=== PATIENT | female | born 1985 | race Caucasian/White ===

== ENCOUNTER → 2017-01-03 | Outpatient (CLI) | payer BC, OTHER ==
--- NOTE | 2017-01-03 16:04 | CT ---
CT CHEST FOR PULMONARY EMBOLISM. EXAMINATION TYPE: CT angio chest DATE OF EXAM: 01/03/2017 INDICATION: Chest pain and pain in the left lower leg CT DLP: 132.8 mGycm, Automated exposure control for dose reduction was used. CONTRAST: Patient injected with 100 mL of Omnipaque 350. COMPARISON: NONE TECHNIQUE: CT of the chest is performed on a spiral scan at 2 mm thick sections. Study is performed with intravenous contrast timed for evaluation for pulmonary embolism. This will limit additional po rtions of the evaluation. 3-D MIP images reconstructed by the technologist are reviewed on the compu ter in the coronal and sagittal planes. FINDINGS: No persistent filling defects are evident to suggest an acute pulmonary embolism. No mediastinal or hilar adenopathy enlarged by CT criteria is evident. The ascending aorta diameter at the level of the main pulmonary artery is 2.8 cm. The main pulmonary artery diameter at the bifur cation is 2.1 cm. Lung windows are clear. Limited CT section through the upper abdomen are unremarkable. IMPRESSIONS: 1. No acute pulmonary embolism.
== END | disposition home or self-care (01) ==
LOC: RADCTMAIN 15:19
PROVIDERS: ATTEND Family Medicine
DX: R07.9 Chest pain, unspecified (principal)
CPT/HCPCS: 71275; Q9967

== ENCOUNTER → 2017-07-14 | Outpatient (CLI) | payer BC ==
--- NOTE | 2017-07-14 07:46 | USB ---
Reason for exam: clinical finding. Indicated problem(s): other indicated problem in the right breast. Physical Findings: Nurse Summary: x 6 months pain and lump 9 o'clock right breast per patient (nurse kp). US Breast RT Right breast ultrasound includes all four quadrants, the retroareolar region and axilla. Finding demonstrates a 0.9 x 1.0 x 0.4cm lesion at 10 o'clock. These results were verbally communicated with the patient and result sheet given to the patient on 07/14/17. ASSESSMENT: Probably benign, BI-RAD 3 RECOMMENDATION: Ultrasound of the right breast in 6 months. Manage patient on a clinical basis.
== END ==
LOC: RADUSWWP 06:55
PROVIDERS: ATTEND Obstetrics & Gynecology
DX: N63.10 Unspecified lump in the right breast, unspecified quadrant (principal); N64.4 Mastodynia

== ENCOUNTER 2017-10-17 13:11 | Emergency (ER) | payer BC ==
[2017-10-17] MEDS ORDERED: RX INFO: IV CONTRAST WAS GIVEN 1 EACH MISC MISCELLANE PRN (16:37)
--- NOTE | 2017-10-17 16:47 | ED ---
General Adult HPI - General Chief complaint: Recheck/Abnormal Lab/Rx Stated complaint: High BP/heart racing/headache Time Seen by Provider: 10/17/17 16:08 Source: patient Mode of arrival: ambulatory Limitations: no limitations - History of Present Illness Initial comments: 31-year-old female presenting with headache. Patient states she has a history of MTHFR has never required anticoagulation. She denies history of any the VTEs. She states that she's been having issues with recurrent otitis media infections. She is currently on day 7 out of 10 of amoxicillin for sinusitis and right otitis media. She states last night she began to have a progressively worsening by slight headache accompanied with some blurred vision. She's been taking Motrin and Tylenol without any relief. She denies any fevers or chills. She denies any focal weakness or problem with gait. - Related Data Home Medications Medication Instructions Recorded Confirmed Acetaminophen [Tylenol] 325 mg PO Q4H PRN 10/17/17 10/17/17 Amoxicillin 500 mg PO BID 10/17/17 10/17/17 FLUoxetine HCL 10 mg PO DAILY 10/17/17 10/17/17 Norgestimate-Ethinyl Estradiol 1 tab PO DAILY 10/17/17 10/17/17 [Sprintec 28 Day Tablet] Previous Rx's Medication Instructions Recorded Fluticasone Nasal [place] [Flonase 2 spr EA NOSTRIL DAILY #1 bottle 10/17/17 Nasal [place]] Allergies Allergy/AdvReac Type Severity Reaction Status Date / Time No Known Allergies Allergy Verified 10/17/17 16:29 Review of Systems ROS Statement: Those systems with pertinent positive or pertinent negative responses have been documented in the HPI. Review of Systems Constitutional: Denies fever, chills Eyes: Positive change in vision, Denies pain Ears, nose, mouth, throat: Positive headaches, Denies sore throat. Positive ear pain. Cardiovascular: Denies chest pain. Denies palpitations Respiratory: Denies shortness of breath, Denies cough Gastrointestinal: Denies abdominal pain. Denies nausea, vomiting, diarrhea. Genitourinary: Denies hematuria, Denies infections Musculoskeletal: Denies pain, Denies swelling Integumentary: Denies rash Neurological: Positive FARMER. Denies focal weakness, focal numbness Psychiatric: Denies anxiety, Denies depression Hematologic/Lymphatic: Denies easy bleeding or bruising ROS Other: All systems not noted in ROS Statement are negative. Past Medical History Additional Past Medical History / Comment(s): MTHFR gene mutation (no anticoagulation recommended for her variant), with normal homocystine levels. History of Any Multi-Drug Resistant Organisms: None Reported Past Surgical History: Section Past Anesthesia/Blood Transfusion Reactions: No Reported Reaction Past Psychological History: No Psychological Hx Reported Smoking Status: Never smoker Past Alcohol Use History: None Reported Past Drug Use History: None Reported - Past Family History Father Family Medical History: Diabetes Mellitus General Exam - General Exam Comments Initial Comments: General: Awake, alert, No acute Distress HENT: Normocephalic. Atraumatic. TMs within normal limits. No mastoid tenderness. Eyes: PERRL. EOMI. vertical nystagmus and fatigable horizontal nystagmus. No scleral icterus. No injected conjunctiva Neck: Full ROM. No midline C-spine tenderness. Chest/Lungs: Clear to auscultation bilaterally. No wheezing, rhonchi, or rales Cardiac: Regular rate, rhythm. No murmurs or rubs Abdomen/GI: [Soft, nontender, nondistended. No rebound, guarding, or rigidity. Musculoskeletal: Full ROM Skin: Warm, dry, intact Neurologic: A/Ox3, no weakness, no sensory deficit, no abdnormal gait, no coordination deficit Limitations: no limitations Course Vital Signs 10/17/17 10/17/17 10/17/17 13:22 16:40 18:40 Temperature 97.8 F Pulse Rate 76 69 65 Respiratory 18 18 16 Rate Blood Pressure 139/88 120/78 121/69 O2 Sat by Pulse 99 99 97 Oximetry Medical Decision Making - Medical Decision Making 31-year-old female presenting with headache. This exam the patient is awake, alert, no acute distress. VSS. On physical exam the patient has vertical nystagmus as well as fatigable horizontal nystagmus. Due to her history of MTHFR and use of control will rule out central venous thrombosis. She is afebrile with no leukocytosis. Unlikely meningitis. 184 Patient's imaging and blood work was negative. Her headache improved with Tylenol and she declined Toradol and Reglan. Her nystagmus resolved. At this time unlikely patients symptoms are due to SAH. She has no neurologic deficit and her reported blurred vision has resolved. She was instructed to follow up with her primary care physician regarding her recurrent symptoms before starting Augmentin and Prednisone that was prescribed a separate EC. She was told to finish her course of Amoxicillin which she is on day 01/31. No further emergent workup is indicated. Patient is stable for discharge. - Lab Data Result diagrams: 10/17/17 17:10 10/17/17 17:10 Lab Results 10/17/17 10/17/17 10/17/17 Range/Units 17:10 17:10 17:10 WBC 6.5 (3.8-10.6) k/uL RBC 4.72 (3.80-5.40) m/uL Hgb 13.4 (11.4-16.0) gm/dL Hct 41.2 (34.0-46.0) % MCV 87.2 (80.0-100.0) fL MCH 28.4 (25.0-35.0) pg MCHC 32.6 (31.0-37.0) g/dL RDW 12.8 (11.5-15.5) % Plt Count 258 (150-450) k/uL Neutrophils % 65 % Lymphocytes % 28 % Monocytes % 4 % Eosinophils % 1 % Basophils % 1 % Neutrophils # 4.2 (1.3-7.7) k/uL Lymphocytes # 1.8 (1.0-4.8) k/uL Monocytes # 0.3 (0-1.0) k/uL Eosinophils # 0.1 (0-0.7) k/uL Basophils # 0.0 (0-0.2) k/uL Sodium 144 (137-145) mmol/L Potassium 4.2 (3.5-5.1) mmol/L Chloride 104 (98-107) mmol/L Carbon Dioxide 28 (22-30) mmol/L Anion Gap 12 mmol/L BUN 11 (7-17) mg/dL Creatinine 0.60 (0.52-1.04) mg/dL Est GFR (CKD-EPI)AfAm >90 (>60 ml/min/1.73 sqM) Est GFR (CKD-EPI)NonAf >90 (>60 ml/min/1.73 sqM) Glucose 96 (74-99) mg/dL Calcium 9.8 (8.4-10.2) mg/dL Total Bilirubin 0.2 (0.2-1.3) mg/dL AST 23 (14-36) U/L ALT 24 (9-52) U/L Alkaline Phosphatase 44 (38-126) U/L Total Protein 7.3 (6.3-8.2) g/dL Albumin 4.4 (3.5-5.0) g/dL Urine Color Urine Appearance (Clear) Urine pH (5.0-8.0) Ur Specific [place] (1.001-1.035) Urine Protein (Negative) Urine Glucose (UA) (Negative) Urine Ketones (Negative) Urine Blood (Negative) Urine Nitrite (Negative) Urine Bilirubin (Negative) Urine Urobilinogen (<2.0) mg/dL Ur Leukocyte Esterase (Negative) Urine RBC (0-5) /hpf Urine WBC (0-5) /hpf Ur Squamous Epith Cells (0-4) /hpf Amorphous Sediment (None) /hpf Urine Mucus (None) /hpf Urine HCG, Qual Not Detected (Not Detectd) 10/17/17 Range/Units 17:10 WBC (3.8-10.6) k/uL RBC (3.80-5.40) m/uL Hgb (11.4-16.0) gm/dL Hct (34.0-46.0) % MCV (80.0-100.0) fL MCH (25.0-35.0) pg MCHC (31.0-37.0) g/dL RDW (11.5-15.5) % Plt Count (150-450) k/uL Neutrophils % % Lymphocytes % % Monocytes % % Eosinophils % % Basophils % % Neutrophils # (1.3-7.7) k/uL Lymphocytes # (1.0-4.8) k/uL Monocytes # (0-1.0) k/uL Eosinophils # (0-0.7) k/uL Basophils # (0-0.2) k/uL Sodium (137-145) mmol/L Potassium (3.5-5.1) mmol/L Chloride (98-107) mmol/L Carbon Dioxide (22-30) mmol/L Anion Gap mmol/L BUN (7-17) mg/dL Creatinine (0.52-1.04) mg/dL Est GFR (CKD-EPI)AfAm (>60 ml/min/1.73 sqM) Est GFR (CKD-EPI)NonAf (>60 ml/min/1.73 sqM) Glucose (74-99) mg/dL Calcium (8.4-10.2) mg/dL Total Bilirubin (0.2-1.3) mg/dL AST (14-36) U/L ALT (9-52) U/L Alkaline Phosphatase (38-126) U/L Total Protein (6.3-8.2) g/dL Albumin (3.5-5.0) g/dL Urine Color Light Yellow Urine Appearance Cloudy H (Clear) Urine pH 7.0 (5.0-8.0) Ur Specific [place] 1.012 (1.001-1.035) Urine Protein Negative (Negative) Urine Glucose (UA) Negative (Negative) Urine Ketones Negative (Negative) Urine Blood Small H (Negative) Urine Nitrite Negative (Negative) Urine Bilirubin Negative (Negative) Urine Urobilinogen <2.0 (<2.0) mg/dL Ur Leukocyte Esterase Negative (Negative) Urine RBC 4 (0-5) /hpf Urine WBC 2 (0-5) /hpf Ur Squamous Epith Cells 1 (0-4) /hpf Amorphous Sediment Few H (None) /hpf Urine Mucus Rare H (None) /hpf Urine HCG, Qual (Not Detectd) Disposition Clinical Impression: Sinusitis, Headache Disposition: HOME SELF-CARE Condition: Good Instructions: Sinusitis (ED), Acute Headache (ED) Prescriptions: Fluticasone Nasal [place] [Flonase Nasal [place]] 2 spr EA NOSTRIL DAILY #1 bottle Referrals: Jaspreet Humphrey III, MD [Primary Care Provider] - 1-2 days
[2017-10-17] MEDS ORDERED: ACETAMINOPHEN TAB 500 MG TAB PO STA (16:51)
[2017-10-17 17:20] LABS: Basophils % (A) 1 %; Eosinophils # (A) 0.1 k/uL (0-0.7); Eosinophils % (A) 1 %; HCT 41.2 % (34.0-46.0); HGB 13.4 gm/dL (11.4-16.0); Lymphocytes # (A) 1.8 k/uL (1.0-4.8); Lymphocytes % (A) 28 %; MCH 28.4 pg (25.0-35.0); MCHC 32.6 g/dL (31.0-37.0); MCV 87.2 fL (80.0-100.0); Mean Platelet Volume 7.7; Monocytes # (A) 0.3 k/uL (0-1.0); Monocytes % (A) 4 %; Neutrophils # (A) 4.2 k/uL (1.3-7.7); Neutrophils % (A) 65 %; Platelet Count 258 k/uL (150-450); RBC 4.72 m/uL (3.80-5.40); RDW 12.8 % (11.5-15.5); WBC 6.5 k/uL (3.8-10.6)
[2017-10-17 17:25] LABS: Amorphous Sediment,Urine Few /hpf; Appearance,Urine Cloudy (Clear); Bilirubin,Urine Negative (Negative); Blood,Urine Small (Negative); Color,Urine Light Yellow; Glucose,Urine (UA) Negative (Negative); Ketones,Urine Negative (Negative); Leukocyte Esterase,Urine Negative (Negative); Mucus,Urine Rare /hpf; Nitrite,Urine Negative (Negative); Protein,Urine Negative (Negative); RBC,Urine 4 /hpf (0-5); Specific Gravity,Urine 1.012 (1.001-1.035); Squamous Epithelial Cell,Urine 1 /hpf (0-4); Urobilinogen,Urine <2.0 mg/dL (<2.0); WBC,Urine 2 /hpf (0-5)
[2017-10-17 17:37] LABS: ALT 24 U/L (9-52); AST 23 U/L (14-36); Albumin 4.4 g/dL (3.5-5.0); Alkaline Phosphatase 44 U/L (38-126); Anion Gap 12 mmol/L; Blood Urea Nitrogen 11 mg/dL (7-17); Calcium 9.8 mg/dL (8.4-10.2); Carbon Dioxide 28 mmol/L (22-30); Chloride 104 mmol/L (98-107); Glucose 96 mg/dL (74-99); Potassium 4.2 mmol/L (3.5-5.1); Sodium 144 mmol/L (137-145); Total Bilirubin 0.2 mg/dL (0.2-1.3); Total Protein 7.3 g/dL (6.3-8.2)
[2017-10-17 17:53] VITALS: TEMP 97.8
[2017-10-17] MEDS ORDERED: METOCLOPRAMIDE 5 MG/ML 2 ML VIAL IVP STA (18:04)
[2017-10-17] MEDS ORDERED: KETOROLAC 30 MG/ML 1 ML VIAL IVP STA (18:04)
--- NOTE | 2017-10-17 18:04 | CT ---
EXAMINATION TYPE: CT brain wo/w con DATE OF EXAM: 10/17/2017 COMPARISON: NONE HISTORY: Right sided headache CT DLP: 2119 mGycm Automated exposure control for dose reduction was used. CONTRAST: Performed with IV Contrast, patient injected with 100ml mL of Isovue 300. FINDINGS: Ventricles and sulci appear normal. There is no mass effect nor midline shift. There is no sign of in tracranial hemorrhage. The contrast images show no pathologic enhancement. The calvarium appears intact. There is minimal mucosal thickening in the ethmoid sinus on the left si de. IMPRESSION: MINIMAL ETHMOID SINUSITIS. OTHERWISE NEGATIVE CT SCAN OF THE BRAIN.
[2017-10-17 19:57] VITALS: BP 120/81; PULSE 63; RESP 18
== END 2017-10-17 19:28 | disposition home or self-care (01) ==
LOC: EC 13:11
DX: J32.2 Chronic ethmoidal sinusitis (principal); E72.12 Methylenetetrahydrofolate reductase deficiency; Z79.3 Long term (current) use of hormonal contraceptives; Z79.899 Other long term (current) drug therapy
CPT/HCPCS: 99284; 36415; 93005; 80053; 85025; 81001; 81025; 70470; Q9967

== ENCOUNTER → 2017-12-22 | Outpatient (CLI) | payer BC ==
--- NOTE | 2017-12-22 11:06 | USB ---
Reason for exam: clinical finding. Indicated problem(s): palpable abnormality in both breasts. Physical Findings: Nurse Summary: soft, movable nodules (nurse dw). US Breast BILAT Right complete breast ultrasound includes all four quadrants, the retroareolar region and axilla. Finding demonstrates no cystic or solid lesion seen. Left complete breast ultrasound includes all four quadrants, the retroareolar region and axilla. Finding demonstrates a 5 x 3 x 3mm oval, solid probable lymph node at 4 o'clock and a 5 x 3 x 5mm oval, hypoechoic lesion at 10 o'clock although has increased through transmission. Prior finding on the right at 10 o'clock appears as a lobe of fibroglandular tissue/fat. These results were verbally communicated with the patient and result sheet given to the patient on 12/22/17. ASSESSMENT: Benign, BI-RAD 2 RECOMMENDATION: Routine screening mammogram of both breasts at age 39. (or sooner in clinically indicated)
== END | disposition home or self-care (01) ==
LOC: RADUSWWP 08:27
PROVIDERS: ATTEND Obstetrics & Gynecology
DX: N63.10 Unspecified lump in the right breast, unspecified quadrant (principal); N63.20 Unspecified lump in the left breast, unspecified quadrant; R92.8 Other abnormal and inconclusive findings on diagnostic imaging of breast

== ENCOUNTER → 2019-02-12 | Outpatient (CLI) | payer BC ==
--- NOTE | 2019-02-12 13:31 | US ---
EXAMINATION TYPE: US abdomen limited DATE OF EXAM: 02/12/2019 COMPARISON: NONE CLINICAL HISTORY: K76.89 Other specified diseases of liver. Liver lesion seen on recent outside MRI 1 month ago EXAM MEASUREMENTS: Liver Length: 15.5 cm Gallbladder Wall: 0.2 cm CBD: 0.4 cm Right Kidney: 11.1 x 4.0 x 4.0 cm Pancreas: wnl Liver: 1.7 x 1.7 x 1.7cm hyperechoic lesion right lobe Gallbladder: wnl Evidence for sonographic Vargas's sign: no CBD: wnl Right Kidney: 0.4cm echogenic focus inferior pole IMPRESSION: 1. Hyperechoic lesion right hepatic lobe may reflect hemangioma. This could be confirmed with hemangi doc protocol CT.
== END | disposition home or self-care (01) ==
LOC: RADUSWWP 08:14
PROVIDERS: ATTEND Family Medicine
DX: K76.9 Liver disease, unspecified (principal)
CPT/HCPCS: 76705

== ENCOUNTER → 2019-02-19 | Outpatient (CLI) | payer BC ==
--- NOTE | 2019-02-19 12:13 | CT ---
EXAMINATION TYPE: CT abdomen wo/w con DATE OF EXAM: 02/19/2019 COMPARISON: Ultrasound 02/12/2019 HISTORY: 33-year-old female with abnormal US. Hepatic metastases. TECHNIQUE: Contiguous axial scanning of the abdomen before and after administration of 100 ml Isovue 300 IV contrast. Delayed images through the kidneys and coronal/sagittal reconstructions performed. CT DLP: 465.8 mGycm Automated exposure control for dose reduction was used. FINDINGS: Heart normal size without pericardial effusion. Liver normal size. Redemonstrated hypodense lesion posterior right liver lobe measuring 1.7 cm. It remains hypodense on late arterial phase which begins to show peripheral nodular puddling on the delayed kidney images. Benign 7 mm hypodensity anterior left liver lobe suggestive of a cyst. Portal venous system is patent. No biliary ductal dilatation. Gallbladder, adrenal glands, kidneys, spleen, and pancreas within normal limits. No dilated small bowel, free fluid, or free air. Moderate stool burden. No pericolonic inflammatory c hange. Scattered prominent mesenteric lymph nodes measure up to 7 mm, refer to coronal image 52 for example. Probably reactive/post inflammatory. The pelvis was not imaged. Bones: Left L5 hemisacralization. No osseous destructive process. IMPRESSION: ENHANCEMENT CHARACTERISTICS SUGGEST A BENIGN 1.7 CM RIGHT HEPATIC HEMANGIOMA. IT WAS NOT CLEARLY S EEN ON THE PATIENT'S CT CHEST OF 01/03/2017, 6-12 MONTH FOLLOW-UP ULTRASOUND CAN ENSURE STABILITY.
== END | disposition home or self-care (01) ==
LOC: RADCTMAIN 10:20
PROVIDERS: ATTEND Family Medicine
DX: R93.2 Abnormal findings on diagnostic imaging of liver and biliary tract (principal); R19.00 Intra-abdominal and pelvic swelling, mass and lump, unspecified site
CPT/HCPCS: 74170; Q9967

== ENCOUNTER → 2019-05-15 | Outpatient (CLI) | payer BC ==
[2019-05-15 13:25] LABS: Appearance,Urine Clear (Clear); Bilirubin,Urine Negative (Negative); Blood,Urine Small (Negative); Color,Urine Light Yellow; Glucose,Urine (UA) Negative (Negative); Ketones,Urine Negative (Negative); Leukocyte Esterase,Urine Negative (Negative); Nitrite,Urine Negative (Negative); Protein,Urine Negative (Negative); RBC,Urine 4 /hpf (0-5); Urobilinogen,Urine <2.0 mg/dL (<2.0); WBC,Urine <1 /hpf (0-5)
== END | disposition home or self-care (01) ==
LOC: LABWHC1 12:00
PROVIDERS: ATTEND Obstetrics & Gynecology
DX: R31.9 Hematuria, unspecified (principal); R82.90 Unspecified abnormal findings in urine
CPT/HCPCS: 81001; 87086

== ENCOUNTER → 2020-09-29 | Outpatient (CLI) | payer BC ==
--- NOTE | 2020-09-30 08:28 | MM ---
Reason for exam: screening (asymptomatic). Baseline mammogram. History: Family history of breast cancer in paternal aunt at age 55. Taking hormonal contraceptives for 22 years beginning at age 12. Physical Findings: Nurse did not find any significant physical abnormalities on exam. MG Screening Mammo w CAD Bilateral CC and MLO view(s) were taken. The breast tissue is heterogeneously dense. This may lower the sensitivity of mammography. Asymmetric density posterior and lateral left CC view. Otherwise, no discrete abnormality. These results were verbally communicated with the patient and result sheet given to the patient on 09/29/20. ASSESSMENT: Incomplete: need additional imaging evaluation, BI-RAD 0 RECOMMENDATION: Special view mammogram of the left breast.
--- NOTE | 2020-09-30 08:29 | MM ---
Reason for exam: additional evaluation requested from abnormal screening. Physical Findings: Breast exam preformed at baseline screening. MG Work Up Mamm w CAD LT Spot compression CC and ML view(s) were taken of the left breast. The breast tissue is heterogeneously dense. This may lower the sensitivity of mammography. The lateral and asymmetric density disperses on additional views. No significant new findings when compared with previous films. These results were verbally communicated with the patient and result sheet given to the patient on 09/29/20. ASSESSMENT: Negative, BI-RAD 1 RECOMMENDATION: Routine screening mammogram of both breasts at age 39.
== END | disposition home or self-care (01) ==
LOC: RADMAMWWP 13:34
PROVIDERS: ATTEND Obstetrics & Gynecology
DX: Z12.31 Encounter for screening mammogram for malignant neoplasm of breast (principal); R92.8 Other abnormal and inconclusive findings on diagnostic imaging of breast
CPT/HCPCS: 77061; 77065; 77067

== ENCOUNTER → 2024-01-16 | Outpatient (CLI) | payer BC ==
--- NOTE | 2024-01-19 08:22 | MM ---
Reason for Exam: Screening (asymptomatic). Last mammogram was performed 3 year(s) and 3 month(s) ago. Patient History: Menarche at age 12. First Full-Term at age 28. Currently using Hormonal Contraceptives, beginning at age 12 for 22 years. Paternal aunt had breast cancer, age 55. Last menstrual period: 01/10/2024 Risk Values: Ariella 5 year model risk: 0.6%. NCI Lifetime model risk: 11.1%. Prior Study Comparison: 09/29/2020 Bilateral Screening Mammogram, [facility]. 09/29/2020 Left Diagnostic Mammogram, [facility]. Tissue Density: The breasts are heterogeneously dense, which may obscure small masses. Findings: Right breast: There is no suspicious group of microcalcifications or new suspicious mass. Left breast: There is no suspicious group of microcalcifications or new suspicious mass. Overall Assessment: Negative, BI-RAD 1 Management: Screening Mammogram of both breasts in [address] [facility] will attempt to contact patient to return for supplemental views and ultrasound if indicated. Patient should continue monthly self-breast exams. A clinical breast exam by your physician is recommended on an annual basis. This exam should not preclude additional follow-up of suspicious palpable abnormalities. Note on Ariella scores and lifetime risk: 1. A Ariella score greater than 3% is considered moderate risk. If this is the case, consider specialist referral to assess eligibility for a risk reducing agent. 2. If overall lifetime risk for the development of breast cancer is 20% or higher, the patient may qualify for future screening with alternating mammogram and breast MRI. Electronically signed and approved by: Javy Degroot DO
== END | disposition home or self-care (01) ==
LOC: RADMAMWWP 08:43
PROVIDERS: ATTEND Internal Medicine
DX: Z12.31 Encounter for screening mammogram for malignant neoplasm of breast (principal); Z80.3 Family history of malignant neoplasm of breast
CPT/HCPCS: 77063; 77067

== ENCOUNTER → 2024-01-23 | Outpatient (CLI) | payer BC ==
--- NOTE | 2024-01-23 12:28 | US ---
EXAMINATION TYPE: US liver DATE OF EXAM: 01/23/2024 COMPARISON: NONE CLINICAL INDICATION: Female, 38 years old with history of R79.89 ELEVATED LFTS; elevated labs once, n o symptoms, known hemangioma TECHNIQUE: Multiple sonographic images of the right upper quadrant are obtained. FINDINGS: EXAM MEASUREMENTS: Liver Length: 15.0 cm Gallbladder Wall: 0.2 cm CBD: 0.6 cm Right Kidney: 10.6 x 4.6 x 5.2 cm Pancreas: wnl Liver: 1.9 x 2.1 x 2.2cm hyperechoic lesion posterior lobe that is probable hemangioma Gallbladder: wnl Evidence for sonographic Vargas's sign: no CBD: wnl Right Kidney: wnl IMPRESSION: 1. Hyperechoic lesion within the liver could represent hepatic hemangioma in a patient without risk factors. 2. No evidence for acute process.
== END | disposition home or self-care (01) ==
LOC: RADUSWWP 08:42
PROVIDERS: ATTEND Internal Medicine
DX: R79.89 Other specified abnormal findings of blood chemistry (principal)
CPT/HCPCS: 76705

== ENCOUNTER → 2025-01-16 | Outpatient (CLI) | payer BC ==
--- NOTE | 2025-01-16 11:48 | MM ---
Reason for Exam: Screening (asymptomatic). Last screening mammogram was performed 12 month(s) ago. Patient History: Menarche at age 12. First Full-Term at age 28. Premenopausal. Currently using Hormonal Contraceptives, beginning at age 12 for 22 years. Paternal aunt had breast cancer, age 55. Risk Values: Ariella 5 year model risk: 0.6%. NCI Lifetime model risk: 11.1%. Prior Study Comparison: 09/29/2020 Bilateral Screening Mammogram, [facility]. 09/29/2020 Left Diagnostic Mammogram, [facility]. 01/16/2024 Bilateral MG 3D screening mammo w/cad, [facility]. Tissue Density: The breasts are heterogeneously dense, which may obscure small masses. Findings: Analyzed By CAD. Right breast: There is no suspicious group of microcalcifications or new suspicious mass. Left breast: There is no suspicious group of microcalcifications or new suspicious mass. Overall Assessment: Negative, BI-RAD 1 Management: Screening Mammogram of both breasts in [address] [facility] will attempt to contact patient to return for supplemental views and ultrasound if indicated. Patient should continue monthly self-breast exams. A clinical breast exam by your physician is recommended on an annual basis. This exam should not preclude additional follow-up of suspicious palpable abnormalities. Note on Ariella scores and lifetime risk: 1. A Ariella score greater than 3% is considered moderate risk. If this is the case, consider specialist referral to assess eligibility for a risk reducing agent. 2. If overall lifetime risk for the development of breast cancer is 20% or higher, the patient may qualify for future screening with alternating mammogram and breast MRI. [facility], , 01/16/2025 11:45 AM. Electronically signed and approved by: Javy Degroot DO
== END | disposition home or self-care (01) ==
LOC: RADMAMWWP 10:41
PROVIDERS: ATTEND Obstetrics & Gynecology Obstetrics
DX: Z12.31 Encounter for screening mammogram for malignant neoplasm of breast (principal); R92.333 Mammographic heterogeneous density, bilateral breasts; Z80.3 Family history of malignant neoplasm of breast; Z92.0 Personal history of contraception
CPT/HCPCS: 77063; 77067